=== PATIENT | female | born 1965 | race Caucasian/White ===

== ENCOUNTER → 2022-02-21 | Outpatient (CLI) | payer OTHER ==
[~2022-02-21] MED LIST: CELEBREX 200MG200 MG PO; IBU600 MG PO; LISINOPRIL2.5 MG PO; METFORMIN HCL500 MG PO; MIRAPEX0.75 MG PO; OMEPRAZOLE40 MG PO; PAROXETINE HCL10 MG PO; ULTRAM50 MG PO; VITAMIN D21250 MCG PO; ZYRTEC10 M3 PO
[2022-02-21 13:56] LABS: HEMOGLOBIN 10.1 gm/dl (12.3-15.3); RED BLOOD COUNT 3.59 M/UL (4.00-5.10)
[2022-02-21 14:18] LABS: BUN/CREATININE RATIO 32 (0-10)
== END ==
LOC: OPSV2 12:30
PROVIDERS: Orthopaedic Surgery
DX: Z01.818 Encounter for other preprocedural examination (principal); G56.01 Carpal tunnel syndrome, right upper limb
CPT/HCPCS: 36415; 80048; 85025; 93005

== ENCOUNTER → 2022-02-23 | Day surgery (SDC) | payer OTHER ==
[~2022-02-23] VITALS: Ht 165.1 cm; Wt 65.3 kg
== END | disposition home or self-care (01) ==
LOC: OR 06:15
DX: G56.03 Carpal tunnel syndrome, bilateral upper limbs (principal); R20.2 Paresthesia of skin; I10 Essential (primary) hypertension; E78.5 Hyperlipidemia, unspecified; K21.9 Gastro-esophageal reflux disease without esophagitis; M19.90 Unspecified osteoarthritis, unspecified site; E11.9 Type 2 diabetes mellitus without complications; Z79.82 Long term (current) use of aspirin; Z79.84 Long term (current) use of oral hypoglycemic drugs; Z79.899 Other long term (current) drug therapy; Z88.5 Allergy status to narcotic agent; Z88.8 Allergy status to other drugs, medicaments and biological substances
CPT/HCPCS: 82962; J1100; J1885; J2001; J2250; J2405; J2704; J3010